=== PATIENT | male | born 1970 | race Caucasian/White ===

== ENCOUNTER → 2022-09-20 07:59 | Outpatient (CLI) | payer BC, SELFPAY ==
--- NOTE | ~2022-09-20 | US_ITS ---
US scrotum doppler DATE: 09/20/2022 08:34 INDICATION: Left scrotal lump for 2 weeks TECHNIQUE: Real-time and color flow imaging and Doppler analysis of the scrotal contents COMPARISON: None FINDINGS: Right testicle measures 3.2 x 1.7 x 3.5 cm. Left testicle measures 4.6 x 2.0 x 3.3 cm. There is homogeneous symmetric echotexture of the testicles. No testicular mass lesion is detected. T here is symmetric normal vascularity of the testicles without evidence of torsion. Mild right hydrocele. 1.7 mm left tunica albuginea cyst. 2 mm cyst of the head of the left epididymis. No varicocele is noted. IMPRESSION: No testicular mass lesion or torsion or other significant abnormality Reviewed, dictated and finalized at [facility]. Reviewed, dictated and finalized at location [facility]. CLAIM REPRESENTATIVE IMPRESSION: No testicular mass lesion or torsion or other significant abnormali ty
== END ==
PROVIDERS: PCP Urology; Visit Provider Urology
DX: N50.89 Other specified disorders of the male genital organs (principal); Z80.43 Family history of malignant neoplasm of testis
CPT/HCPCS: 76870; 93976

== ENCOUNTER 2024-01-26 00:32 | Observation (INO) | payer BC, SELFPAY ==
[2024-01-26] VITALS (11 sets, daily range): BP systolic 108–137; BP diastolic 50–88; PULSE 58–83; RESP 15–20; TEMP 36.4–37.1; O2SAT 96–100
--- NOTE | 2024-01-26 | ECG_ITS ---
Measurements Intervals [place] Rate: 71 P: 32 WI: 140 QRS: 71 QRSD: 105 T: 24 QT: 372 QTc: 407 Interpretive Statements SINUS RHYTHM NONSPECIFIC T-WAVE ABNORMALITY ABNORMAL ECG NO PREVIOUS ECG AVAILABLE FOR COMPARISON Electronically Signed On 01-26-2024 7:46:13 CDT by Tapan Basilio M.D.
--- NOTE | 2024-01-26 | ECHO_ITS ---
Patient Info Name: Salo Chavez Age: 53 years : 1970 Gender: Male Ht: 71 in Wt: 212 lbs BSA: 2.22 m2 HR: 70 bpm BP: 108 / 50 mmHg Heart Rhythm: Sinus Rhythm Technical Quality: Good Exam Date: 01/26/2024 9:09 AM Exam Location: Echo Lab Patient Status: Outpatient Admit Date: 01/26/2024 Staff Ordering Physician: Waqas Nunez MD Manager Statistical: Jason Moctezuma RDCS Attending Provider: Waqas Nunez MD Exam Type: CA echo doppler color flow Study Info Indications - syncope Complete two-dimensional, color flow and Doppler transthoracic echocardiogram is performed. Summary 1. Complete two-dimensional, color flow and Doppler transthoracic echocardiogram is performed. 2. Left ventricular chamber dimension is normal. 3. Left ventricular systolic function is normal, estimated at 60-65%. 4. The left ventricular diastolic function is normal. 5. E/e' 9 is minimally elevated. 6. No pulmonary hypertension, estimated pulmonary arterial systolic pressure is 17 mmHg. Left Ventricle E/e' 9 is minimally elevated. Left ventricular chamber dimension is normal. Left ventricular systolic function is normal, estimated at 60-65%. The left ventricular diastolic function is normal. Right Ventricle Right ventricular chamber dimension is normal. Right ventricular systolic function is normal. Left Atria Left atrial chamber dimension is normal. Right Atria Right atrial chamber dimension is normal. Aortic Valve The aortic valve is trileaflet. There is no aortic valve stenosis. There is no aortic valve regurgitation. Pulmonic Valve There is no pulmonic regurgitation. Mitral Valve There is no mitral valve stenosis. There is no mitral valve regurgitation. Tricuspid Valve There is no tricuspid valve regurgitation. No pulmonary hypertension, estimated pulmonary arterial systolic pressure is 17 mmHg. Pericardium/Pleural There is no pericardial effusion. Inferior Vena Cava Normal inferior vena cava with >50% collapse upon inspiration consistent with normal right atrial pressure, 5 mmHg. Aorta The aortic root size at the sinus of Valsalva is normal. Left Ventricular Outflow Tract Name Value Normal LVOT 2D LVOT Diameter 1.8 cm LVOT Doppler LVOT Peak Gradient 10 mmHg LVOT Mean Gradient 7 mmHg LVOT VTI 37 cm LVOT VTI/AV VTI Ratio 1.1 LVOT Stroke Volume 94 ml LVOT CO 6.2 l/min LVOT CI 2.8 l/min/m2 Pulmonic Valve Name Value Normal RVOT Doppler RVOT Peak Gradient 4 mmHg PV Doppler PV Peak Gradient 6 mmHg Mitral Valve Name
--- NOTE | ~2024-01-26 | US_ITS ---
EXAMINATION: US carotid duplex BI DATE: 01/26/2024 16:57 INDICATION: Syncope and vertigo TECHNIQUE: Grayscale, color Doppler, and pulsed Doppler images of the cervical carotid arteries were obtained. The degree of vessel stenosis is placed in one of the following categories: normal, <50%, 5 0-69%, >=70% but less than near-occlusion, near-occlusion, or total occlusion. Note that percent sten osis relative to normal distal artery lumen diameter is indirectly measured from velocity measurement s as described by Shai, et al. Radiology 2003; 229:340-346. COMPARISON: None. FINDINGS: RIGHT: The right common carotid artery (CCA) peak systolic velocity (PSV) is 101 cm/s. The right internal ca rotid artery (ICA) PSV is 75 cm/s. The right ICA end-diastolic velocity (EDV) is 29 cm/s. The right I CA/CCA PSV ratio is 0.7. Grayscale and color Doppler images yield an estimate of <50% diameter reduct ion from plaque in the ICA. The external carotid artery (ECA) PSV is 105 cm/s. There is antegrade jose w in the right vertebral artery. LEFT: The left CCA PSV is 128 cm/s. The left ICA PSV is 70 cm/s. The left ICA EDV is 28 cm/s. The left ICA/ CCA PSV ratio is 0.5. Grayscale and color Doppler images yield an estimate of <50% diameter reduction from plaque in the ICA. The ECA PSV is 79 cm/s. There is antegrade flow in the left vertebral artery . IMPRESSION: 1. <50% stenosis in the right internal carotid artery. 2. <50% stenosis in the left internal carotid artery. Reviewed, dictated and finalized at location A.
--- NOTE | ~2024-01-26 | CT_ITS ---
EXAMINATION: CT brain wo con DATE: 01/26/2024 01:37 INDICATION: Head injury. Syncope. Dizziness. TECHNIQUE: Computed tomography (CT) of the head was performed without intravenous contrast. The mA wa s adjusted according to patient size. Iterative reconstruction technique was employed. The dose-lengt h product was 605.33 mGy-cm. COMPARISON: None FINDINGS: There is no intracranial hemorrhage, acute infarction, or abnormal intracranial mass lesion . The ventricles are normal in size. There is mild mucosal thickening in the ethmoid sinuses. The orb its are normal. The mastoid air cells are normal. IMPRESSION: 1. Normal brain. Reviewed, dictated and finalized at location A. IMPRESSION: 1. Normal brain.
--- NOTE | ~2024-01-26 | CT_ITS ---
EXAMINATION: CT cervical spine wo con DATE: 01/26/2024 01:37 INDICATION: Head injury. TECHNIQUE: Computed tomography (CT) of the cervical spine was performed without intravenous contrast. Automated exposure control and iterative reconstruction technique were employed. The dose-length pro duct was 504.73 mGy-cm. COMPARISON: None FINDINGS: There is mild emphysema. Bone alignment is normal. Vertebral body heights are normal. There is mildly decreased disc height at C3-C4 and C5-C6 and moderately decreased disc height at C6-C7. Th e following disc levels are specifically discussed: C2-C3: There is moderate right and mild left uncovertebral joint osteoarthritis. There is no facet albert int osteoarthritis. There is no neural foraminal stenosis. There is no central canal stenosis. C3-C4: There is severe bilateral uncovertebral joint osteoarthritis. There is mild bilateral facet albert int osteoarthritis. There is mild bilateral neural foraminal stenosis. There is no central canal sten osis. C4-C5: There is mild bilateral uncovertebral joint osteoarthritis. There is no facet joint osteoarthr itis. There is no neural foraminal stenosis. There is no central canal stenosis. C5-C6: There is mild right and severe left uncovertebral joint osteoarthritis. There is no facet join t osteoarthritis. There is moderate left neural foraminal stenosis. There is no central canal stenosi s. C6-C7: There is severe bilateral uncovertebral joint osteoarthritis. There is no facet joint osteoart hritis. There is mild bilateral neural foraminal stenosis. There is mild central canal stenosis. C7-T1: There is mild bilateral uncovertebral joint osteoarthritis. There is mild bilateral facet join t osteoarthritis. There is no neural foraminal stenosis. There is no central canal stenosis. IMPRESSION: 1. No fracture. 2. Moderate cervical spondylosis. Reviewed, dictated and finalized at location A.
--- NOTE | ~2024-01-26 | XR_ITS ---
EXAMINATION: XR chest 1V portable DATE: 01/26/2024 05:42 INDICATION: Syncope. TECHNIQUE: A single frontal view of the chest was obtained. COMPARISON: None. FINDINGS: There is no pneumonia, pleural effusion, or pneumothorax. The heart size is normal. IMPRESSION: 1. No acute cardiopulmonary disease. Reviewed, dictated and finalized at location A.
[2024-01-26 00:47] LABS: Basophils Percent Auto 0.7 % (0.2-1.2); Eosinophils Absolute Auto 0.1 K/mm3 (0-0.3); Hemoglobin 15.5 g/dL (14.0-18.0); Immature Granulocyte Absolute 0.07 K/mm3 (0.00-0.031); Immature Granulocyte Percent A 1.2 % (0-0.5); Lymphocytes Percent Auto 27.3 % (18.3-44.2); Mean Corpuscular HGB Conc 33.7 g/dl (32-36); Mean Corpuscular Hemoglobin 31.3 pg (26-34); Mean Corpuscular Volume 92.7 fl (80-100); Mean Platelet Volume 9.1 fl (7.4-10.4); Monocytes Absolute Auto 0.5 K/mm3 (0.1-0.6); Neutrophils Absolute Auto 3.5 K/mm3 (1.3-6.7); Neutrophils Percent Auto 59.8 % (45.5-73.1); Platelet Count Result 275 k/mm3 (150-375); Red Blood Count 4.96 M/mm3 (4.6-6.20); White Blood Count 5.9 K/mm3 (4.5-10.0)
[2024-01-26 00:53] LABS: Alanine Aminotransferase 44 U/L (6-50); Albumin Level 4.3 g/dL (3.5-5.1); Alkaline Phosphatase 61 U/L (38-126); Anion Gap 8 mmol/L (4-12); Aspartate Amino Transferase 37 U/L (17-59); Bilirubin,Total 0.7 mg/dL (0.2-1.3); Blood Urea Nitrogen 14 mg/dL (9-20); Calcium 8.9 mg/dL (8.4-10.2); Carbon Dioxide 25 mmol/L (22-30); Chloride 104 mmol/L (98-107); Estimated CRCL calculation 90 ml/min; Estimated Glomerular Filt Rate > 60; Glucose 211 mg/dL (65-110); Potassium 3.4 mmol/L (3.4-5.0); Sodium 137 mmol/L (137-145)
--- NOTE | 2024-01-26 01:10 | ED.DIZZY ---
HPI - Dizziness General Chief Complaint: Syncope Stated Complaint: syncope, fall Time Seen by Provider: 01/26/24 01:08 History of Present Illness HPI Narrative: Patient is a 53-year-old male who presents to the emergency department this morning after 2 syncopal episodes. Patient states that he was getting out of bed to go get some of his medications when he syncopized and fell forward hitting the front of his forehead on the ground. Patient states that he got up and shortly after he passed out again. Patient denies any similar episodes in the, denies any history of cardiovascular disease, and is currently denying any headaches, dizziness, lightheadedness, focal weakness, and the patient also denies any chest pain, denies any and any recent fevers or chills. There are no other modifying, alleviating, or precipitating factors at this time. Related Data Home Medications Medication Instructions Recorded Confirmed coenzyme Q10 200 mg capsule 200 mg PO DAILY 03/22/23 12/29/23 fish oil BYMOUTH 03/22/23 12/29/23 omeprazole magnesium 20 mg 20 mg PO DAILY 03/22/23 12/29/23 tablet,delayed release (Prilosec OTC) ascorbate calcium (vitamin C) 500 1,000 mg PO DAILY 12/29/23 12/29/23 mg tablet cholecalciferol (vitamin D3) 125 125 mcg PO DAILY 12/29/23 12/29/23 mcg (5,000 unit) capsule mecobalamin (vitamin B12) 5,000 5,000 mcg PO DAILY 12/29/23 12/29/23 mcg chewable tablet multivitamin 1 tablet PO DAILY 12/29/23 12/29/23 Testosterone TRIT sublingual 2XD 01/05/24 Allergies Allergy/AdvReac Type Severity Reaction Status Date / Time iodine AdvReac Severe Unknown Verified 01/26/24 00:39 pravastatin AdvReac myalgia Verified 01/26/24 00:39 LIVALO AdvReac Severe MYALGIAS Uncoded 01/26/24 00:39 Review of Systems Review of Systems: All systems are reviewed and are negative unless stated otherwise in the HPI. [facility] Past Medical History Medical History Abnormal laboratory test Anxiety Depression Dyslipidemia IBS (irritable bowel syndrome) Insomnia Myalgia CARSON (obstructive sleep apnea) sleep study 03/08/2017 A[facility] 27 recommend 6 cm H2O, no significant hypoxia Periodic health assessment, general screening, adult Screening PSA (prostate specific antigen) Testosterone deficiency Vitamin B12 deficiency (non anemic) Vitamin D deficiency Surgical History Surgical History [place] teeth extracted Family History Family History Father CAD (coronary artery disease) Hx of CABG Social History Social History Smoking status: Former smoker Tobacco type: cigarettes Smoking end date: 09/22/18 Alcohol intake: current Substance use: never Substance use type: does not use Lack of Transportation: No Lack of Food: Never True Current Housing: I Have Housing Concerned About Future Housing: No Difficulty Paying Gas/Electric Bills: No Difficulty Paying for Meds: No Currently Unemployed: No Difficulty w/ Childcare or Family Care: No Living arrangements: with family Occupation/Education: occupation Gender identity (if verbalized by the patient): Male Sexual Orientation (if Verbalized by the Patient): Straight or Heterosexual Exam Narrative: General: Alert, awake, afebrile, in no acute distress. HEENT: PERRL, no rhinorrhea, no post nasal drip, oropharynx clear, small linear horizontal abrasion to mid forehead. Neck: Trachea midline, no JVD, no lymphadenopathy. Cardiovascular: Regular rate and rhythm, no murmurs, rubs or gallops, no peripheral edema. Respiratory: Clear to auscultation bilaterally, no tachypnea, no wheezing, no rhonchi, no rubs, no respiratory distress. Abdomen: Soft, nontender, nondistended, no rebound, no guarding, no peritoneal signs. Musculoskeletal: No joint sw
[2024-01-26 01:35] LABS: Troponin I < 0.012 ng/mL (0.000-0.034)
[2024-01-26] MEDS: SODIUM CHLORIDE 0.9% IV 1,000 ML 999 ML IV CONT (01:51)
[2024-01-26 02:03] LABS: Influenza A QL RT-PCR Negative (Negative); Influenza B QL RT-PCR Negative (Negative); RSV RNA, RT-PCR Negative (Negative); SARS-CoV-2 RNA PCR Negative (Negative)
--- NOTE | 2024-01-26 06:08 | PM.IMHP ---
H&P: HPI History of Present Illness Date/Time: 01/26/24 06:08 Chief Complaint: Dizziness Narrative: Patient is a 53-year-old male with history of anxiety, sleep disturbance, obstructive sleep apnea, depression, testosterone deficiency, presented to the hospital with dizzy and syncopal like feeling. Patient stated he was sleeping woke up to go to the bathroom door take his Ambien and then felt dizzy and passed out patient she is currently on Viibryd, lorazepam, Seroquel and diet item number taking the medications more than recommended. Denies fevers chills nausea vomiting diarrhea no chest pain or shortness of breath never had had cardiac issues in the past sees his primary care team Review of Systems Review of Systems: No fevers chills nausea vomiting. No double vision no blurry vision. No difficulty hearing or sinus complaints. No chest pain shortness of breath fever palpitation dizziness ankle swelling. No coughing wheezing chills. No nausea constipation diarrhea abdominal pain reflux. No urgency frequency of urination. No hematuria. No skin rash eczema. No anxiety depression difficulty sleeping. No bleeding gums enlarged glands. No muscle ache back pain joint stiffness. No loss of strength numbness headache tremor or loss of memory. [facility] Past Medical History Medical History (Updated 01/26/24 @ 06:13 by Waqas Nunez MD) Abnormal laboratory test Anxiety Depression Dyslipidemia IBS (irritable bowel syndrome) Insomnia Myalgia CARSON (obstructive sleep apnea) sleep study 03/08/2017 A[facility] 27 recommend 6 cm H2O, no significant hypoxia Periodic health assessment, general screening, adult Screening PSA (prostate specific antigen) Testosterone deficiency Vitamin B12 deficiency (non anemic) Vitamin D deficiency Surgical History Surgical History [place] teeth extracted Family History Family History Father CAD (coronary artery disease) Hx of CABG Social History Social History Smoking status: Former smoker Tobacco type: cigarettes Smoking end date: 09/22/18 Alcohol intake: current Substance use: never Substance use type: does not use Lack of Transportation: No Lack of Food: Never True Current Housing: I Have Housing Concerned About Future Housing: No Difficulty Paying Gas/Electric Bills: No Difficulty Paying for Meds: No Currently Unemployed: No Difficulty w/ Childcare or Family Care: No Living arrangements: with family Occupation/Education: occupation Gender identity (if verbalized by the patient): Male Sexual Orientation (if Verbalized by the Patient): Straight or Heterosexual Meds Home Medications and Allergies Home Medications Medication Instructions Recorded Confirmed Type vilazodone 40 mg tablet 20 mg PO DAILY #135 tabs 01/11/23 12/29/23 Rx coenzyme Q10 200 mg capsule 200 mg PO DAILY 03/22/23 12/29/23 History fish oil BYMOUTH 03/22/23 12/29/23 History omeprazole magnesium 20 mg 20 mg PO DAILY 03/22/23 12/29/23 History tablet,delayed release (Prilosec OTC) quetiapine 50 mg tablet,extended 50 mg PO QHS #90 tabs 12/21/23 12/29/23 Rx release 24 hr ascorbate calcium (vitamin C) 500 1,000 mg PO DAILY 12/29/23 12/29/23 History mg tablet cholecalciferol (vitamin D3) 125 125 mcg PO DAILY 12/29/23 12/29/23 History mcg (5,000 unit) capsule lorazepam 1 mg tablet 1 mg PO TID PRN anxiety #90 tabs 12/29/23 12/29/23 Rx mecobalamin (vitamin B12) 5,000 5,000 mcg PO DAILY 12/29/23 12/29/23 History mcg chewable tablet multivitamin 1 tablet PO DAILY 12/29/23 12/29/23 History Testosterone TRIT sublingual 2XD 01/05/24 History zolpidem 5 mg tablet (Ambien) 5 - 10 mg PO QHS #30 tabs 01/25/24 Rx Allergies Allergy/AdvReac Type Severity Reaction Status Date / Time iodine Adv
--- NOTE | 2024-01-26 12:53 | PM.IMPN ---
Progress Note: A&P Assessment and Plan (1) Insomnia: Qualifiers: Insomnia type: primary Qualified Code(s): F51.01 - Primary insomnia Code(s): G47.00 - Insomnia, unspecified Status: Acute (2) CARSON (obstructive sleep apnea): Code(s): G47.33 - Obstructive sleep apnea (adult) (pediatric) Status: Acute (3) Dyslipidemia: Code(s): E78.5 - Hyperlipidemia, unspecified Status: Acute (4) Depression: Code(s): F32.A - Depression, unspecified Status: Acute (5) Anxiety: Code(s): F41.9 - Anxiety disorder, unspecified Status: Acute (6) Syncope and collapse: Code(s): R55 - Syncope and collapse Status: Acute Plan syncope. CT of the head is negative. Echo unremarkable EKG with normal sinus rhythm Monitor telemetry Get carotid ultrasound Orthostatic vitals negative noted continue to monitor and PT OT Possible vasovagal History of hyperlipidemia. History of anxiety and depression. History of hypogonadism currently on testosterone. History gastric reflux currently on omeprazole Resume all home medications DVT prophylaxis SCDs low risk early ambulation possible discharge tomorrow Subjective Date/time seen: 01/26/24 12:53 Interval history: Chart reviewed. Feels well. Sleepy as he has not Slept all night. No fever chills echo was reviewed. Review of Systems Review of Systems: All systems reviewed & are unremarkable except as noted in HPI and below Exam Narrative: GENERAL: Well appearing, no acute distress. HEAD: Normocephalic, atraumatic. NECK: Supple. No adenopathy, no masses. RESPIRATORY: respirations nonlabored. , no rales, wheezing. CARDIOVASCULAR: Regular rate and rhythm without murmurs, . Peripheral pulses 2+ and equal bilaterally. ABDOMINAL: Soft, nontender, nondistended, no hepatosplenomegaly. Normoactive BS. MUSCULOSKELETAL: no Epigastric and no hypochondrial tenderness SKIN: Warm, dry, NEURO: A&O X3. Moves all extremities Objective Data Vital Signs Vital Signs: Vital Signs - 24 hr 01/26/24 00:32 01/26/24 02:14 01/26/24 05:16 Temperature 97.6 F Pulse Rate 72 78 70 Respiratory Rate 16 15 15 Blood Pressure 132/88 124/84 108/50 L Pulse Oximetry 100 96 97 Oxygen Delivery Room Air 01/26/24 07:35 01/26/24 07:36 01/26/24 07:37 Temperature 98.8 F Pulse Rate 68 70 72 Respiratory Rate 16 Blood Pressure 118/68 127/67 115/71 Pulse Oximetry 100 Oxygen Delivery 01/26/24 09:15 Temperature Pulse Rate Respiratory Rate Blood Pressure Pulse Oximetry Oxygen Delivery Room Air Intake/Output Intake/Output: Intake & Output 01/23/24 01/24/24 01/25/24 01/26/24 23:59 23:59 23:59 23:59 Intake Total 1240 Balance 1240 Meds/Results Medications: Active Medications Generic Name Dose Route Start Last Admin Trade Name Freq PRN Reason Stop Dose Admin Acetaminophen 650 mg 01/26/24 06:06 Acetaminophen 325 Mg Tablet PO Q4H PRN Mild Pain (1-3) or Fever Ascorbic Acid 1,000 mg 01/27/24 09:00 Ascorbic Acid 500 Mg Tablet PO DAILY RUBEN Perflutren Lipid Microsphere 0 ml 01/26/24 06:14 Perflutren Lipid Microspheres 1.5 Ml Vial Diluted To 10 Ml Total Volume IV PUSH 01/29/24 06:14 ONCE PRN adequate visualization Protocol Radiology Results: ITS Impressions Chest X-Ray 01/26/24 05:55 IMPRESSION: 1. No acute cardiopulmonary disease. Head CT 01/26/24 05:56 IMPRESSION: 1. Normal brain. Cervical Spine CT 01/26/24 05:58 IMPRESSION: 1. No fracture. 2. Moderate cervical spondylosis. Labs Labs: Laboratory Results - last 24 hr 01/26/24 01/26/24 01/26/24 00:36 00:36 01:23 WBC 5.9 RBC 4.96 Hgb 15.5 Hct 46.0 MCV 92.7 MCH 31.3 MCHC 33.7 RDW 13.0 Plt Count 275 MPV 9.1 Immature Gran % (Auto) 1.2 H Neut % (Auto) 59.8 Lymph % (Auto) 27.3 [place] % (A
[2024-01-26] MEDS: LORazepam (*CRX) 1 MG TABLET PO (13:40)
--- NOTE | 2024-01-26 15:03 | PHAR ---
pharmacy verified home med: * Home Med * Vilazodone 40 mg tablet take one half tablet once daily
[2024-01-26] MEDS: ZOLPIDEM TARTRATE (*CRX) 5 MG TABLET PO (20:47)
[2024-01-27 00:04] VITALS: PULSE 60
[2024-01-27 04:00] VITALS: PULSE 54
[2024-01-27 06:00] VITALS: BP 106/66; PULSE 67; RESP 20; TEMP 36.4; O2SAT 100
[2024-01-27] MEDS: ASCORBIC ACID 500 MG TABLET 1000 MG PO (07:51)
[2024-01-27] MEDS: CHOLECALCIFEROL 1,000 UNITS TABLET 5000 UNITS PO (07:51)
[2024-01-27] MEDS: MULTIVITAMINS THERAPEUTIC TAB (*BKC) 1 TABLET PO (07:51)
[2024-01-27] MEDS: PANTOPRAZOLE 40 MG TABLET PO (07:52)
[2024-01-27] MEDS: CYANOCOBALAMIN 1,000 MCG TABLET 5000 MCG PO (07:52)
[2024-01-27] MEDS: LORazepam (*CRX) 1 MG TABLET PO (07:53)
[2024-01-27 08:00] VITALS: PULSE 67
--- NOTE | 2024-01-27 11:11 | PM.DS ---
DS: Admitting Diagnosis Discharge Date 01/27/2024 Admitting Diagnosis Syncope DS: Discharge Diagnosis Discharge Diagnosis (1) Insomnia: Qualifiers: Insomnia type: primary Qualified Code(s): F51.01 - Primary insomnia Code(s): G47.00 - Insomnia, unspecified Status: Acute (2) CARSON (obstructive sleep apnea): Code(s): G47.33 - Obstructive sleep apnea (adult) (pediatric) Status: Acute (3) Dyslipidemia: Code(s): E78.5 - Hyperlipidemia, unspecified Status: Acute (4) Depression: Code(s): F32.A - Depression, unspecified Status: Acute (5) Anxiety: Code(s): F41.9 - Anxiety disorder, unspecified Status: Acute (6) Syncope and collapse: Code(s): R55 - Syncope and collapse Status: Acute DS: Summary Hospital Course Hospital Course: Patient presented with?syncope.? CT of the head is negative.? Echo unremarkable EKG with normal sinus rhythm Monitor telemetry negative for any arrhythmia Carotid ultrasound negative Orthostatic vitals negative noted continue to monitor and PT OT Possible vasovagal History of hyperlipidemia.? History of anxiety and depression.? History of hypogonadism currently on testosterone.? History gastric reflux currently on omeprazole Resume all home medications DVT prophylaxis SCDs low risk early ambulation delete Time Spent with Patient Time attestation: Total time spent providing and/or coordinating discharge services: 30 minutes Exam Narrative: GENERAL: Well appearing, no acute distress. HEAD: Normocephalic, atraumatic. NECK: Supple. No adenopathy, no masses. RESPIRATORY: respirations nonlabored. , no rales, wheezing. CARDIOVASCULAR: Regular rate and rhythm without murmurs, . Peripheral pulses 2+ and equal bilaterally. ABDOMINAL: Soft, nontender, nondistended, no hepatosplenomegaly. Normoactive BS. MUSCULOSKELETAL: no Epigastric and no hypochondrial tenderness SKIN: Warm, dry, NEURO: A&O X3. Moves all extremities DS: Data Data Completed and Pending Completed studies during hospitalization: Exam Type: ? ? CA echo doppler color flow Study Info Indications ?? ? - syncope Complete two-dimensional, color flow and Doppler transthoracic echocardiogram is performed. Account #: ? ? [id number] Summary ? 1. Complete two-dimensional, color flow and Doppler transthoracic echocardiogram is performed. ? 2. Left ventricular chamber dimension is normal. ? 3. Left ventricular systolic function is normal, estimated at 60-65%. ? 4. The left ventricular diastolic function is normal. ? 5. E/e' 9 is minimally elevated. ? 6. No pulmonary hypertension, estimated pulmonary arterial systolic pressure is 17 mmHg. Left Ventricle ? E/e' 9 is minimally elevated. ? Left ventricular chamber dimension is normal. ? Left ventricular systolic function is normal, estimated at 60-65%. ? The left ventricular diastolic function is normal. Right Ventricle ? Right ventricular chamber dimension is normal. ? Right ventricular systolic function is normal. Left Atria ? Left atrial chamber dimension is normal. Right Atria ? Right atrial chamber dimension is normal. Aortic Valve ? The aortic valve is trileaflet. ? There is no aortic valve stenosis. ? There is no aortic valve regurgitation. Pulmonic Valve ? There is no pulmonic regurgitation. Mitral Valve ? There is no mitral valve stenosis. ? There is no mitral valve regurgitation. Tricuspid Valve ? There is no tricuspid valve regurgitation. ? No pulmonary hypertension, estimated pulmonary arterial systolic pressure is 17 mmHg. Pericardium/Pleural ? There is no pericardial effusion. Inferior Vena Cava ? Normal inferior vena cava with >50% collapse upon inspiration consistent with normal right atrial pressure, 5 mmHg. Aorta ? The aortic root size at the sinus of Valsalva is normal. Imaging Radiologist's impression: ITS Impressions
== END 2024-01-27 11:42 | disposition home or self-care (01) ==
LOC: ANHED 06:05 → ANH2MED 07:06
PROVIDERS: Admitting Provider Internal Medicine; Emergency Provider Emergency Medicine; PCP Physician Assistant Medical; Visit Provider Internal Medicine
DX: R55 Syncope and collapse (principal); S09.90XA Unspecified injury of head, initial encounter; W18.39XA Other fall on same level, initial encounter; E78.5 Hyperlipidemia, unspecified; G47.33 Obstructive sleep apnea (adult) (pediatric); F51.01 Primary insomnia; E55.9 Vitamin D deficiency, unspecified; E53.8 Deficiency of other specified B group vitamins; K21.9 Gastro-esophageal reflux disease without esophagitis; F41.9 Anxiety disorder, unspecified; F32.A Depression, unspecified; Z87.891 Personal history of nicotine dependence; Z79.890 Hormone replacement therapy; Z20.822 Contact with and (suspected) exposure to COVID-19
CPT/HCPCS: 36415; 70450; 71045; 72125; 80053; 83735; 84484; 85025; 87637; 93005; 93306; 93880; 96360; 99285; A9270; G0378; J7030; L0140

== ENCOUNTER 2024-04-05 00:48 | Day surgery (SDC) | payer BC, SELFPAY ==
[2024-03-21 13:46] VITALS: BMI 28.5
[2024-04-05 09:11] VITALS: BP 129/85; PULSE 76; RESP 20; TEMP 36.4; O2SAT 100
[2024-04-05] MEDS: LACTATED RINGERS 1,000 ML 150 ML IV CONT (09:22)
--- NOTE | 2024-04-05 09:42 | WPDANESEPPF ---
Anes - Initial Pre Proc Eval Procedure: Operation Date: 04/05/24 10:30 Proposed Procedures p Screening Colonoscopy - Lenny Peter MD Date/Time: 04/05/24 09:42 Surgeon: Lenny Peter MD Pre Op Diagnosis: neoplasm screening Patient Data Age: 54 Gender: M Height: 1.8 m Weight: 88.4 kg Last Vital Signs Temp 97.5 F L 04/05/24 09:11 Pulse 76 04/05/24 09:11 Resp 20 04/05/24 09:11 BP 129/85 04/05/24 09:11 Pulse Ox 100 04/05/24 09:11 O2 Del Method Room Air 04/05/24 09:11 Allergies Allergy/AdvReac Type Severity Reaction Status Date / Time iodine Allergy Severe Hives Verified 04/05/24 09:09 pravastatin Allergy Intermediate myalgia Verified 04/05/24 09:09 LIVALO Allergy Severe MYALGIAS Uncoded 04/05/24 09:09 Home Medications Medication Instructions Recorded Confirmed Type coenzyme Q10 200 mg capsule 200 mg PO DAILY 03/22/23 03/21/24 History omeprazole magnesium 20 mg 20 mg PO DAILY 03/22/23 03/21/24 History tablet,delayed release (Prilosec OTC) lorazepam 1 mg tablet 1 mg PO TID PRN anxiety #90 tabs 12/29/23 04/05/24 Rx multivitamin 1 tablet PO DAILY 12/29/23 03/21/24 History Testosterone TRIT 5 mg sublingual 2XD 01/05/24 03/21/24 History vilazodone 40 mg tablet 20 mg PO DAILY #135 tabs 03/07/24 04/05/24 Rx ascorbic acid (vitamin C) 1,000 mg 1 g PO DAILY 03/21/24 03/21/24 History tablet aspirin 81 mg capsule 81 mg PO DAILY 03/21/24 03/21/24 History cholecalciferol (vitamin D3) 25 25 mcg PO DAILY 03/21/24 03/21/24 History mcg (1,000 unit) tablet (Vitamin D3) cyanocobalamin (vitamin B-12) 1,000 mcg PO DAILY 03/21/24 03/21/24 History 1,000 mcg tablet omega-3 fatty acids 2,000 mg PO DAILY 03/21/24 03/21/24 History zolpidem 5 mg tablet (Ambien) 5 - 10 mg PO QHS PRN Insomnia #30 04/01/24 Rx tabs Patient hx anesthesia problems: none Family hx anesthesia problems: none Results Review: All pre-operative results and documents have been reviewed as part of the pre-operative evaluation. PMFSH Past Medical History Medical History Abnormal laboratory test Anxiety Depression Dyslipidemia IBS (irritable bowel syndrome) Insomnia Myalgia CARSON (obstructive sleep apnea) sleep study 03/08/2017 [facility] 27 recommend 6 cm H2O, no significant hypoxia Periodic health assessment, general screening, adult Screening PSA (prostate specific antigen) Testosterone deficiency Vitamin B12 deficiency (non anemic) Vitamin D deficiency Surgical History Surgical History [place] teeth extracted Family History Family History Father CAD (coronary artery disease) Hx of CABG Social History Social History Smoking packs per day: 1 Smoking cigarettes per day: 20.0 Years smoked: 30 Smoking pack-years: 30.00 Smoking status: Former smoker Tobacco type: cigarettes and e-cigarettes/vaping Smoking end date: 10/23/18 Additional smoking assessment comments: STARTED VAPING IN 2019 Alcohol intake: current Drinks per week: 2 Alcohol use details: BEERS Substance use: never Substance use type: does not use Do You Feel Safe in your Home?: Yes Lack of Transportation: No Lack of Food: Never True Current Housing: I Have Housing Concerned About Future Housing: No Difficulty Paying Gas/Electric Bills: No Difficulty Paying for Meds: No Currently Unemployed: No Education: Associate Degree Difficulty w/ Childcare or Family Care: No Living arrangements: with family Occupation/Education: occupation Gender identity (if verbalized by the patient): Male Sexual Orientation (if Verbalized by the Patient): Straight or Heterosexual Spiritual care concerns: No Anes - Eval Final PreProcedure Day of Procedure 0
--- NOTE | 2024-04-05 09:59 | PM.HPGS ---
History of Present Illness History of Present Illness Consent: Risks, benefits, and alternatives have been discussed and questions answered. Patient agrees to proceed with procedure. Chief complaint: neoplasm screening Narrative: Salo Chavez is a 54 year old male here for first screening colonoscopy Review of Systems Review of Systems: All systems reviewed & are unremarkable except as noted in HPI and below PMFSH Past Medical History Medical History (Updated 04/05/24 @ 10:00 by Lenny Peter MD) Abnormal laboratory test Anxiety Colon cancer screening Depression Dyslipidemia IBS (irritable bowel syndrome) Insomnia Myalgia CARSON (obstructive sleep apnea) sleep study 03/08/2017 [facility] 27 recommend 6 cm H2O, no significant hypoxia Periodic health assessment, general screening, adult Screening PSA (prostate specific antigen) Testosterone deficiency Vitamin B12 deficiency (non anemic) Vitamin D deficiency Surgical History Surgical History [place] teeth extracted Family History Family History Father CAD (coronary artery disease) Hx of CABG Social History Social History Smoking packs per day: 1 Smoking cigarettes per day: 20.0 Years smoked: 30 Smoking pack-years: 30.00 Smoking status: Former smoker Tobacco type: cigarettes and e-cigarettes/vaping Smoking end date: 10/23/18 Additional smoking assessment comments: STARTED VAPING IN 2019 Alcohol intake: current Drinks per week: 2 Alcohol use details: BEERS Substance use: never Substance use type: does not use Do You Feel Safe in your Home?: Yes Lack of Transportation: No Lack of Food: Never True Current Housing: I Have Housing Concerned About Future Housing: No Difficulty Paying Gas/Electric Bills: No Difficulty Paying for Meds: No Currently Unemployed: No Education: Associate Degree Difficulty w/ Childcare or Family Care: No Living arrangements: with family Occupation/Education: occupation Gender identity (if verbalized by the patient): Male Sexual Orientation (if Verbalized by the Patient): Straight or Heterosexual Spiritual care concerns: No Meds Home Medications and Allergies Home Medications Medication Instructions Recorded Confirmed Type coenzyme Q10 200 mg capsule 200 mg PO DAILY 03/22/23 03/21/24 History omeprazole magnesium 20 mg 20 mg PO DAILY 03/22/23 03/21/24 History tablet,delayed release (Prilosec OTC) lorazepam 1 mg tablet 1 mg PO TID PRN anxiety #90 tabs 12/29/23 04/05/24 Rx multivitamin 1 tablet PO DAILY 12/29/23 03/21/24 History Testosterone TRIT 5 mg sublingual 2XD 01/05/24 03/21/24 History vilazodone 40 mg tablet 20 mg PO DAILY #135 tabs 03/07/24 04/05/24 Rx ascorbic acid (vitamin C) 1,000 mg 1 g PO DAILY 03/21/24 03/21/24 History tablet aspirin 81 mg capsule 81 mg PO DAILY 03/21/24 03/21/24 History cholecalciferol (vitamin D3) 25 25 mcg PO DAILY 03/21/24 03/21/24 History mcg (1,000 unit) tablet (Vitamin D3) cyanocobalamin (vitamin B-12) 1,000 mcg PO DAILY 03/21/24 03/21/24 History 1,000 mcg tablet omega-3 fatty acids 2,000 mg PO DAILY 03/21/24 03/21/24 History zolpidem 5 mg tablet (Ambien) 5 - 10 mg PO QHS PRN Insomnia #30 04/01/24 Rx tabs Allergies Allergy/AdvReac Type Severity Reaction Status Date / Time iodine Allergy Severe Hives Verified 04/05/24 09:09 pravastatin Allergy Intermediate myalgia Verified 04/05/24 09:09 LIVALO Allergy Severe MYALGIAS Uncoded 04/05/24 09:09 Vital Signs Vital Signs - 24 hr 04/05/24 09:11 Temperature 97.5 F L Pulse Rate 76 Respiratory Rate 20 Blood Pressure 129/85 Pulse Oximetry 100 Oxygen Delivery Room Air Exam Const: General: comfortable and no acute distress HENMT: Face/Nose/Sinus: Normal nares present Eyes:
[2024-04-05 10:18] VITALS: BP 106/65; PULSE 63; RESP 16; O2SAT 97
[2024-04-05 10:28] VITALS: BP 104/73; PULSE 58; RESP 12; O2SAT 98
[2024-04-05 10:38] VITALS: BP 113/72; PULSE 61; RESP 15; O2SAT 99
== END 2024-04-05 10:44 | disposition home or self-care (01) ==
PROVIDERS: PCP Physician Assistant Medical; Visit Provider Internal Medicine Gastroenterology
PROC: 0DJD8ZZ Inspection of Lower Intestinal Tract, Via Natural or Artificial Opening Endoscopic (ICD-10-PCS; CPT 45378; principal; 2024-04-05 10:30)
DX: Z12.11 Encounter for screening for malignant neoplasm of colon (principal); D12.5 Benign neoplasm of sigmoid colon; K64.8 Other hemorrhoids; F41.8 Other specified anxiety disorders; E78.49 Other hyperlipidemia; G47.33 Obstructive sleep apnea (adult) (pediatric); E53.8 Deficiency of other specified B group vitamins; E55.9 Vitamin D deficiency, unspecified; Z87.891 Personal history of nicotine dependence
CPT/HCPCS: 45385; 88305; J2704; J7120